=== PATIENT | female | born 1970 | race Caucasian/White ===

== ENCOUNTER 2019-11-12 22:43 | Observation (INO) ==
[2019-11-12 23:42] LABS: Basophils % 0.4 %; Eosinophils # 0.1 K/mcL (0.0-0.6); Eosinophils % 1.9 %; Hematocrit 45.3 % (35.3-44.9); Hemoglobin 14.6 g/dL (11.5-15.4); Immature Granulocytes % 0.3 % (0-4); Lymphocytes # 1.3 K/mcL (0.6-4.6); Lymphocytes % 18.7 %; Mean Corpuscular HGB Conc 32.2 g/dL (31.6-35.5); Mean Corpuscular Hemoglobin 28.9 pg (28.0-33.3); Mean Corpuscular Volume 89.5 fL (83.0-100.0); Mean Platelet Volume 9.6 fL (9.4-12.4); Monocytes # 0.4 K/mcL (0.0-1.3); Monocytes % 5.9 %; Neutrophils # 4.9 K/mcL (1.6-8.9); Platelet Count 235 K/mcL (140-400); Red Blood Count 5.06 M/mcL (3.82-4.97); Red Cell Distribution Width 13.6 % (11.5-14.5); Segmented Neutrophils % 72.8 %; White Blood Count 6.8 K/mcL (4.3-11.1)
[2019-11-12 23:43] LABS: Bilirubin,Urine Negative (Negative); Blood,Urine Negative (Negative); Clarity,Urine Clear (Clear); Color,Urine Yellow (Yellow); Glucose,Urine (UA) Normal (Normal); Ketones,Urine Negative (Negative); Leukocyte Esterase,Urine Negative (Negative); Nitrite,Urine Negative (Negative); Protein,Urine Trace mg/dL (Neg-Trace); Specific Gravity,Urine 1.027 (1.010-1.025); Urobilinogen,Urine Normal (Normal)
[2019-11-13 00:04] LABS: Amylase 39 Units/L (29-103); BUN/Creatinine Ratio 23 (6-26); Blood Urea Nitrogen 19 mg/dL (6-20); Calcium 9.8 mg/dL (8.6-10.3); Carbon Dioxide 28 mEq/L (23-29); Chloride 104 mEq/L (98-107); Glucose 115 mg/dL (70-105); Lipase 23 Units/L (11-82); Osmolality,Calculated 293 (280-300); Potassium 3.8 mEq/L (3.5-5.1); Sodium 140 mEq/L (136-145); eGFR For African Americans > 60 (> 60); eGFR For Non-African Americans > 60 (> 60)
[2019-11-13] MEDS ORDERED: Ketorolac 15 MG/ML VIAL IVP ONE (00:49)
[2019-11-13] MEDS ORDERED: 0.9 % Sodium Chloride 1,000 ML IV ONE (00:51)
[2019-11-13] MEDS ORDERED: Ondansetron 4 MG/2 ML VIAL IVP ONE (00:51)
[2019-11-13 01:37] LABS: Alanine Aminotransferase 33 Units/L (7-52); Albumin 4.5 g/dL (3.5-5.7); Albumin/Globulin Ratio 1.8 (1.1-2.2); Alkaline Phosphatase 76 Units/L (34-104); Aspartate Amino Transferase 20 Units/L (13-39); Bilirubin,Indirect 0.4 mg/dL (0.0-1.0); Bilirubin,Total 0.4 mg/dL (0.3-1.0); Globulin 2.5 g/dL (2.4-3.5)
[2019-11-13] MEDS ORDERED: Isovue-370 500 ML BOTTLE IVP ONE (02:08)
[2019-11-13] MEDS ORDERED: Piperacillin/Tazobactam 3.375 GM in 0.9 % Sodium Chloride Mini Bag 100 ML IVPB ONE (05:34)
[2019-11-13] MEDS ORDERED: Ondansetron 4 MG/2 ML VIAL IVP PRN ×2 (07:21→16:52)
[2019-11-13] MEDS ORDERED: *HR* OxyCODONE/APAP 5/325 TABLET PO PRN ×2 (07:21→16:52)
[2019-11-13] MEDS ORDERED: *HR* Metoprolol 5 MG/5 ML VIAL IVP PRN ×2 (07:21→16:52)
[2019-11-13] MEDS ORDERED: 0.9 % Sodium Chloride 1,000 ML IVC SCH (07:30)
[2019-11-13] MEDS ORDERED: Pantoprazole 40 MG VIAL IVP SCH (09:00)
[2019-11-13] MEDS ORDERED: *HR* OxyCODONE Immed Rel 5 MG TABLET PO PRN ×2 (13:31→16:52)
[2019-11-13] MEDS ORDERED: *HR* Promethazine 25 MG/ML VIAL IVP PRN ×2 (13:31→16:52)
[2019-11-13] MEDS ORDERED: Acetaminophen IV 1,000 MG/100 ML BAG IVPB ONE ×2 (13:31→16:52)
[2019-11-13] MEDS ORDERED: *HR* Midazolam HCl 2 MG/2 ML VIAL IVP PRN ×2 (13:31→16:52)
[2019-11-13] MEDS ORDERED: *HR* Meperidine 25 MG/ML SYRINGE IVP PRN ×2 (13:31→16:52)
[2019-11-13] MEDS ORDERED: *HR* FentaNYL (PF) 100 MCG/2 ML VIAL IVP PRN ×2 (13:31→16:52)
[2019-11-13] MEDS ORDERED: *HR* HYDROmorphone PF 0.5 MG/0.5 ML SYRINGE IVP PRN ×2 (13:31→16:52)
[2019-11-13] MEDS ORDERED: Isovue-300 50ML VIAL ONE (13:56)
[2019-11-13] MEDS ORDERED: Lidocaine -MPF 2% 2 ML VIAL ONE (13:57)
[2019-11-13] MEDS ORDERED: *HR* Rocuronium Bromide 50 MG/5 ML VIAL ONE (13:57)
[2019-11-13] MEDS ORDERED: Dexamethasone 4 MG/ML VIAL ONE (13:57)
[2019-11-13] MEDS ORDERED: Ondansetron 4 MG/2 ML VIAL ONE (13:57)
[2019-11-13] MEDS ORDERED: *HR* Succinylcholine 200 MG/10 ML VIAL IVP ONE (13:57)
[2019-11-13] MEDS ORDERED: *HR* Propofol 200 MG/20 ML VIAL IVP ONE ×3 (14:00→15:24)
[2019-11-13] MEDS ORDERED: Lidocaine HCL 4 ML Topical Solution (Laryng-O-Jet Kit Sterile Pak) TP ONE (14:38)
[2019-11-13] MEDS ORDERED: cefOXitin 1,000 MG, 0.9 % Sodium Chloride 1,000 ML IR ONE ×2 (15:00→16:52)
[2019-11-13] MEDS ORDERED: *HR* FentaNYL (PF) 100 MCG/2 ML VIAL ONE (15:03)
[2019-11-13] MEDS ORDERED: Ringers Solution, Lactated 1,000 ML ONE (15:57)
[2019-11-13] MEDS: 0.9 % Sodium Chloride 1,000 ML IVC SCH (18:18)
[2019-11-14] MEDS: 0.9 % Sodium Chloride 1,000 ML IVC SCH (04:28)
[2019-11-14 08:28] VITALS: BP 117/73
[2019-11-14] MEDS ORDERED: Pantoprazole 40 MG VIAL IVP SCH (09:00)
== END 2019-11-14 11:25 | disposition home or self-care (01) ==
LOC: 3ANU 22:43 → EMEROOARM 22:43 → 3ANU 11-13 06:26
PROVIDERS: ADMIT Surgery; ATTEND Surgery